=== PATIENT | male | born 1935 | race Caucasian/White ===

== ENCOUNTER 2018-08-12 06:03 | Inpatient (IN) ==
--- NOTE | 2018-08-05 13:01 | PAT Medication Instructions ---
Medication Instructions Date of Service August 05, 2018 Home Medications aspirin 81 mg PO QAM atenolol 25 mg PO QAM lisinopril 10 mg PO QAM DO NOT take the morning of surgery lisinopril 10 mg PO QAM Take morning of surgery With a small sip of water, OTHERWISE NOTHING TO EAT OR DRINK AFTER MIDNIGHT: aspirin 81 mg PO QAM atenolol 25 mg PO QAM Other Notes If you have any questions please call us at [phone] or [phone] or [phone] or [phone]
--- NOTE | 2018-08-05 13:58 | Anesthesiology Consultation ---
Date of Service August 05, 2018 Assessment & Plan (1) Encounter for pre-operative examination: Cardio clearance ([place]) 08/08: "Elderly male with history of hypertension and moderately severe aortic stenosis. He is asymptomatic. He was able to walk 0.5 miles without any problems prior to his fall. ...Echocardiogram done today. I reviewed and interpreted his echocardiogram. His LV systolic function is normal. There is no significant change in his aortic valve stenosis. No contraindication for proposed multilevel lumbar spine surgery. His cardiac risk is acceptable. His medical therapy is optimized. His current cardiac medication should be continued perioperatively." Chart Review Chart Review: Acceptable Risk for Surgery and Patient seen in Pre Admission Testing Consults Requested cardiac History Surgery Operation Date: 08/12/18 13:00 Proposed Procedures p L4-S1 Decompression and Fusion - Gordon Liz DO Height/Weight Height: 5 ft 9 in Weight: 56.699 kg Allergies Allergy/AdvReac Type Severity Reaction Status Date / Time gluten AdvReac Mild celiac Verified 08/03/18 13:42 disease Medications Home Medications Medication Instructions Recorded Confirmed Last Taken aspirin 81 mg PO QAM 08/03/18 08/03/18 Unknown atenolol 25 mg PO QAM 08/03/18 08/03/18 Unknown lisinopril 10 mg PO QAM 08/03/18 08/03/18 Unknown Past Medical History Medical History Aortic stenosis Moderate to moderately severe per 02/09/2018 echo. ABHISHEK 0.7 cm, mean gradient 32 mmHg. Cancer SKIN CANCER S/P EXCISION Celiac disease Chronic back pain Emphysema lung Hearing deficit [place] Hypertension Lumbar radicular pain Past Surgical History Surgical History History of colonoscopy Past Anesthesia History No Hx of Anesthesia Complications and No Family Hx of Anesthesia Complications History of PONV No Social History Smoking Status: Never smoker Do You Dip or Chew Tobacco: No Hx Alcohol Use: No Hx Substance Use: No substance use type: does not use Exercise / Class Metabolic Activity II 4-5 Yardwork/Stairs/Walk up hill (Denies CP or SOB with stairs) Review of Systems Pt denies any recent chest pain, shortness of breath, palpitations, cough, fever or URI. Physical Exam Vital Signs BP: 113/67 P: 70bpm SPO2: 99% RA T: 97.8 F R: 12 ENMT Mouth: + dentures and + edentulous Thyromental Distance: > or= 3.5 Finger Breadths (3.5) Mallampati Class: I Neck normal visual inspection; neck extension not limited Respiratory normal respiratory effort Auscultation: lungs clear to auscultation bilaterally Cardiovascular Rate/Rhythm: regular rate and regular rhythm Heart Sounds: + murmur (II/ MAURICIO across precordium) Vessels: + carotid bruit (radiation from murmur) Extremities: no edema Testing Electrocardiogram Date: 08/05/18 Findings: + NSR @ (61) LVH with repolarization abnormality. Cannot r/o septal infarct, age undetermined. *per 07/2017 EKG from [facility], septal infarct cited on or before 12/08/13) Chest X-Ray Date: 08/05/18 1. Hyperinflation 2. No evidence of focal pulmonary consolidation 3. Mild basilar interstitial thickening, a finding of uncertain chronicity Echocardiogram Date: 08/08/18 EF: 60% Examination is adequate to evaluate the referral indication. Primary indication after review was deemed appropriate examination was performed. Moderately severe aortic stenosis is present. Peak/mean gradient across aortic valve is 55/34 mmHg. Calculated ABHISHEK is 0.7 cm. Mild AV regurgitation is present. No LV segmental wall motion abnormality's. The LV wall thickness is mildly increased (concentric). Grade 1 diastolic dysfunction. Right atrial size is normal. Right ventricular cavity size is normal. Right ventricular systolic function is normal. When compared to study of 02/09/2018, there is no significant change in aortic valve area. Stress Test Date: 01/24/15 Type: exercise (EKG only) Adequate cardiovascular stress test. Mildly positive EKG changes for myocardial ischemia. Functional capacity of 6.3 METs. No significant arrhythmias were noted. Normal blood pressure and heart rate response to exercise. Patient denied chest discomfort reporting only shortness of breath at peak exercise. *per cardiology, this was medically managed with the addition of Atenolol 25mg, and no further testing done. Laboratory Results 08/05/18 14:46 08/05/18 14:46 Blood Type A Positive 08/05/18 14:46 Antibody Screen NEGATIVE 08/05/18 14:46 PT 10.5 Seconds (9.0-12.0) 08/05/18 14:46 INR 1.0 (0.9-1.1) 08/05/18 14:46 APTT 25.3 Seconds (21.0-31.0) 08/05/18 14:46 Urine Color Yellow 08/05/18 14:46 Urine Appearance Clear (Clear) 08/05/18 14:46 Urine pH 7.5 (4.5-7.5) 08/05/18 14:46 Ur Specific Johnston 1.014 (1.000-1.030) 08/05/18 14:46 Urine Protein Negative (Negative) 08/05/18 14:46 Urine Glucose (UA) Negative (Negative) 08/05/18 14:46 Urine Ketones Negative (Negative) 08/05/18 14:46 Urine Nitrite Negative (Negative) 08/05/18 14:46 Ur Leukocyte Esterase Negative (Negative) 08/05/18 14:46
--- NOTE | 2018-08-05 15:14 | XRay Report ---
XR chest Pre-admission PA/Lat CLINICAL HISTORY: Preoperative chest COMPARISON STUDY: No previous studies for comparison. FINDINGS: The heart is normal in size. There is aortic tortuosity. The patient appears hyperinflated. There is mild basilar interstitial thickening. There is no lobar consolidation. There is no overt fa ilure. Degenerative changes are present within the spine and shoulders.[ IMPRESSION: 1. Hyperinflation 2. No evidence of focal pulmonary consolidation 3. Mild basilar interstitial thickening, a finding of uncertain chronicity Electronically signed by: Homar Hercules M.D. 08/05/2018 3:12 PM
[2018-08-05 15:47] LABS: Basophils # (auto) 0.03 K/uL (0-0.2); Basophils % (auto) 0.5 %; Eosinophils # (auto) 0.17 K/uL (0-0.5); Hematocrit (blood only) 36.2 % (42-52); Hemoglobin 12.3 g/dL (14.0-18.0); Immature Granulocytes # (auto) 0.01 K/uL (0.00-0.02); Immature Granulocytes % (auto) 0.2 %; Lymphocytes # (auto) 1.13 K/uL (1.2-3.4); Lymphocytes % (auto) 19.8 %; Mean Corpuscular Volume 92.1 fL (80-100); Mean Platelet Volume 8.8 fL (7.4-10.4); Monocytes # (auto) 0.49 K/uL (0.11-0.59); Monocytes % (auto) 8.6 %; Neutrophils # (auto) 3.89 K/uL (1.4-6.5); Neutrophils % (auto) 67.9 %; Platelet Count 324 K/uL (130-400); RDW Coefficient of Variation 14.7 % (11.5-14.5); RDW Standard Deviation 49.5 fL (36.4-46.3); Red Blood Count 3.93 M/uL (4.7-6.1); White Blood Count 5.72 K/uL (4.8-10.8)
[2018-08-05 15:55] LABS: Calcium 9.1 mg/dl (8.5-10.1); Creatinine Clr Calc Pharmacy 61.1 ml/min; Est GFR (African American) 99.2; Est GFR (Non-African American) 85.6; Potassium 3.8 mmol/L (3.5-5.1)
[2018-08-05 15:58] LABS: Appearance Urine Clear (Clear); Bilirubin Urine Negative (Negative); Blood Urine Negative (Negative); Color Urine Yellow; Glucose Urine UA Negative (Negative); Ketones Urine Negative (Negative); Leukocyte Esterase Urine Negative (Negative); Nitrite Urine Negative (Negative); Protein Urine Negative (Negative); Specific Gravity Urine 1.014 (1.000-1.030); Urobilinogen Urine Negative (Negative); pH Urine 7.5 (4.5-7.5)
[2018-08-05 16:04] LABS: Partial Thromboplastin Ratio 0.9; Partial Thromboplastin Time 25.3 Seconds (21.0-31.0); Prothrombin Time 10.5 Seconds (9.0-12.0)
[~2018-08-12 06:03] MED LIST: ACETAMINOPHEN 500 MG TAB PO SCH; CEFAZOLIN 1000MG 1,000 MG/7.5 ML SYR IV SCH; CeleBREX 200 MG CAP PO SCH; GABAPENTIN 300 MG PO SCH; LR 15ML/HR IV SCH
[2018-08-12] MEDS ORDERED: HYDROmorphone INJ 2 MG/ML SYR/VIAL ONE ×2 (06:43→06:44)
[2018-08-12] MEDS ORDERED: MIDAZOLAM HCL 1 MG/ML 2ML VIAL ONE (06:43)
[2018-08-12] MEDS ORDERED: fentaNYL citrate 100 MCG/2 ML VIAL ONE ×5 (06:43→09:02)
[2018-08-12] MEDS ORDERED: LIDOCAINE HCL 2% 2 ML VIAL/AMP(20MG/ML) INFIL ONE (06:45)
[2018-08-12] MEDS ORDERED: ROCURONIUM BROMIDE 10 MG/ML 5 ML VIAL ONE (06:45)
[2018-08-12] MEDS ORDERED: ONDANSETRON INJ 2 MG/ML 2 ML VIAL ONE (06:45)
[2018-08-12] MEDS ORDERED: GLYCOPYRROLATE 0.2 MG/ML VIAL ONE (06:45)
[2018-08-12] MEDS ORDERED: DEXAMETHASONE SOD INJ 4 MG/ML VIAL ONE (06:45)
[2018-08-12] MEDS ORDERED: NEOSTIGMINE METHYLSULFATE 1 MG/ML 10ML VIAL ONE (06:45)
[2018-08-12] MEDS ORDERED: PROPOFOL IV EMULSION 10 MG/ML 20 ML VIAL IV ONE (06:45)
[2018-08-12] MEDS ORDERED: BACITRACIN INJ 50,000 UNIT VIAL ONE (07:10)
[2018-08-12] MEDS ORDERED: BUPIVACAINE/EPINEPHRINE 0.5% MPF 1:200,000 30 ML VIAL ONE (07:10)
[2018-08-12] MEDS ORDERED: ETOMIDATE 2 MG/ML 20 ML VIAL IV ONE (07:29)
--- NOTE | 2018-08-12 07:33 | History & Physical Bridge Note ---
Date of Service August 12, 2018 History & Physical Bridge Note I have examined the patient, reviewed the History & Physical and in the interval since the performance of the History & Physical I have noted the following changes of clinical significance: no changes noted
--- NOTE | 2018-08-12 07:34 | History & Physical Report ---
Date of Service August 12, 2018 Assessment & Plan (1) Spinal stenosis, lumbar region with neurogenic claudication: L4-S1 decompression and fusion Present on Admission?: Yes History of Present Illness Chief Complaint: Back and leg pain Primary Care Provider: Sherman Khan, DO This is a 82-year-old male presents with chronic persistent back and leg pain after failing extensive course of nonoperative care is here for surgical intervention. Allergies Allergy/AdvReac Type Severity Reaction Status Date / Time nifedipine Allergy Verified 08/12/18 06:54 gluten AdvReac Mild celiac Verified 08/12/18 06:21 disease Home Medications Home Medications Medication Instructions Recorded Confirmed Type aspirin 81 mg PO QAM 08/03/18 08/12/18 History atenolol 25 mg PO QAM 08/03/18 08/12/18 History lisinopril 10 mg PO QAM 08/03/18 08/12/18 History Past Med/Surg History Medical History Aortic stenosis Moderate to moderately severe per 02/09/2018 echo. ABHISHEK 0.7 cm, mean gradient 32 mmHg. Cancer SKIN CANCER S/P EXCISION Celiac disease Chronic back pain Emphysema lung Hearing deficit [place] Hypertension Lumbar radicular pain Surgical History History of colonoscopy Social History Preferred Language: Trinidadian Communication Ability: Effective Organic Search Lead Required: No Beliefs That Will Affect Care: None Current Living Situation: Spouse Other Information That Helps Us Care for You: No Feels Safe at Home: Yes Safety Concerns: Feels Safe At This Time Smoking Status: Never smoker Do You Dip or Chew Tobacco: No Second Hand Exposure: No Tobacco Cessation Education Requested by Patient: No Hx Alcohol Use: No Hx Substance Use: No Physical Exam Vital Signs (Past 24 Hours): Last Vital Signs Temp 36.8 C 08/12/18 06:23 Pulse 59 L 08/12/18 06:23 Resp 18 08/12/18 06:23 BP 170/88 H 08/12/18 06:23 Pulse Ox 100 08/12/18 06:23
--- NOTE | 2018-08-12 09:59 | Fluoroscopy Report ---
FL lumbar spine 2-3V CLINICAL HISTORY: L4-S1 DECOMPRESSION AND FUSION COMPARISON STUDY: None FLUOROSCOPY TIME: 21 seconds NUMBER OF FLUOROSCOPIC IMAGES: 3 FINDINGS: Image intensifier support for L4-S1 decompression and fusion IMPRESSION: L4-S1 decompression and fusion The above report was generated using voice recognition software. It may contain grammatical, syntax or spelling errors. Electronically signed by: Álvaro Crespo M.D. 08/12/2018 9:58 AM
--- NOTE | 2018-08-12 09:59 | Operative Report ---
Post Operative Report Pre & Post Diagnosis Operation Date: 08/12/18 07:45 Pre-Op Diagnosis: Lumbar Spinal Stenosis with Neurogenic Claudication Post-Op Diagnosis: Lumbar Spinal Stenosis with Neurogenic Claudication Procedure Operation Date: 08/12/18 07:45 Actual Procedures #1 lumbar decompression medial facetectomy foraminotomy L3-4 L4-5 L5-S1 per #2 posterior spinal fusion L4-5 L5-S1 per #3 placement posterior segmental instrumentation L4-5 L5-S1 per #4 interbody fusion L4-5 L5-S1. #5 placement of titanium 12 x 26 mm cage L4-5 L5-S1 per #6 placement of local autograft in the posterior lateral gutters per #7 placement Feese collagen sponge, mass graft in the posterior gutters and ostial amp and interbody space. Surgeon Gordon Liz, Gamb Cutter Mitesh Harris Estimated Blood Loss 75 Findings Consistent with Post-Op Diagnosis Specimens None Description of Procedure Patient was met with preoperatively case discussed all questions addressed. After informed consent obtained patient was taken to the operative suite underwent intubation and placed in a prone position on the Quintin table on top of the Anthony frame. All bony prominences well-padded eyes inspected to ensure no external pressure placed upon. This point the lumbar spine was prepped and draped in the normal sterile fashion. Sharp dissection with the assistance of Bovie cautery was performed down to and exposing the lamina transverse process of L4-L5 and sacral ala bilaterally. From a caudal to cephalad fashion complete laminectomy of L5 L4 partial laminectomy of L3 was performed including bilateral medial facetectomies and foraminotomies addressing severe spinal stenosis and L4-L5 and S1 levels bilaterally with assistance of fluoroscopy and by way of a transforaminal approach on the left complete discectomy was performed at L5-S1 in place coated to subcortical being bone and a 12 x 26 mm titanium cage filled with osteo-amp bone graft tapped in position. Then proceeded to L4-[address] of a transforaminal approach on the left discectomy performed in plate coated to subcortical bleeding bone and a 12 x 26 mm titanium cage filled with ostium bone graft tapped in position. The rods and then placed compressed locked in final position bilaterally. The transverse process of L4-L5 and sacral ala bur to subcortical bleeding bone. Infuse collagen sponge mass graft local autograft placed in the posterior lateral gutters. 15 round AD drain inserted. The incision was then closed with 1 Vicryl in the fascia 2-0 Vicryl substantially and 4-0 Monocryl for final skin closure. Steri-Strip sterile dressings placed. Patient will continue to PACU stable disc. Please note Mitesh Harris was present of the entire procedure involved the patient positioning complex portions of the surgery and final skin closure. I attest to the content of the Intraoperative Record and any orders documented therein. Any exceptions are noted below.
[2018-08-12] MEDS ORDERED: PHENYLEPHRINE 100MCG/ML 5ML SYR ONE (10:22)
[2018-08-12] MEDS ORDERED: PROMETHAZINE HCL 12.5 MG in SODIUM CHLORIDE 0.9% 50 ML IV PRN ×2 (11:17→12:10)
[2018-08-12] MEDS ORDERED: ONDANSETRON INJ 2 MG/ML 2 ML VIAL IV PRN ×2 (11:17→12:10)
[2018-08-12] MEDS ORDERED: FLUMAZENIL 0.1 MG/1 ML 10 ML VIAL IV PRN (11:17)
[2018-08-12] MEDS ORDERED: ATROPINE SULFATE 0.1 MG/ML 10ML SYR IV PRN (11:17)
[2018-08-12] MEDS ORDERED: ePHEDrine sulfate 50 MG/ML AMP IV PRN (11:17)
[2018-08-12] MEDS ORDERED: NALOXONE HCL 0.4 MG/1 ML VIAL/CARP IV PRN (11:17)
[2018-08-12] MEDS ORDERED: LABETALOL HCL IV 5 MG/ML 20ML IV PRN (11:17)
[2018-08-12] MEDS ORDERED: fentaNYL citrate 100 MCG/2 ML VIAL IV PRN (11:17)
--- NOTE | 2018-08-12 11:52 | Anesthesiology Progress Note ---
Date of Service August 12, 2018 Anesthesia Post Procedure Vital Signs Vital Signs: Temp Pulse Pulse Resp BP BP Pulse Ox 08/12/18 11:25 45 L 0 L 157/70 H 100 08/12/18 11:21 49 L 16 164/69 H 100 08/12/18 11:20 45 L 10 L 100 08/12/18 11:16 47 L 10 L 169/70 H 100 08/12/18 11:15 46 L 11 L 99 08/12/18 11:10 48 L 15 159/74 H 98 08/12/18 11:07 36.4 C L 50 L 16 159/74 H 99 08/12/18 11:05 48 L 8 L 100 08/12/18 11:00 46 L 11 L 174/78 H 100 08/12/18 10:55 47 L 11 L 164/76 H 100 08/12/18 10:50 49 L 16 160/77 H 100 08/12/18 10:45 52 L 17 165/77 H 100 08/12/18 10:40 57 L 10 L 158/86 H 100 08/12/18 10:35 54 L 16 160/74 H 100 08/12/18 10:31 60 17 154/83 H 100 08/12/18 10:30 55 L 16 100 08/12/18 10:25 57 L 16 158/75 H 100 08/12/18 10:20 57 L 12 155/80 H 100 08/12/18 10:18 55 L 18 100 08/12/18 10:17 56 L 17 162/78 H 100 08/12/18 06:23 36.8 C 59 L 18 170/88 H 100 Notes Mental Status: alert / awake / arousable Patient Amnestic to Procedure: Yes Nausea / Vomiting: adequately controlled Pain: adequately controlled Airway Patency, RR, SpO2: stable & adequate BP & HR: stable & adequate Hydration State: stable & adequate Anesthetic Complications: no major complications apparent
[2018-08-12] MEDS ORDERED: HYDROmorphone INJ 0.5 MG/0.5 ML SYR IV PRN (12:10)
[2018-08-12] MEDS ORDERED: BISACODYL 10 MG SUPP PR PRN (12:10)
[2018-08-12] MEDS ORDERED: ACETAMINOPHEN 1,000 MG/100 ML VIAL IV PRN (12:10)
[2018-08-12] MEDS ORDERED: METOCLOPRAMIDE HCL INJ 5 MG/ML 2 ML VIAL IV PRN (12:10)
[2018-08-12] MEDS ORDERED: OXYCODONE HCL IR 5 MG TAB (IMMEDIATE RELEASE) PO PRN (12:10)
[2018-08-12] MEDS ORDERED: SOD PHOSPHATE/SOD BIPHOSPHATE ENEMA 132 ML BTL PR PRN (12:10)
[2018-08-12] MEDS ORDERED: ACETAMINOPHEN 500 MG TAB PO PRN (12:10)
[2018-08-12] MEDS ORDERED: ONDANSETRON 4 MG TAB PO PRN (12:10)
[2018-08-12] MEDS ORDERED: ALUMINUM/MAGNESIUM SUSP 30 ML UDC PO PRN (12:10)
[2018-08-12] MEDS ORDERED: MAGNESIUM HYDROXIDE SUSP 30 ML UDC PO PRN (12:10)
[2018-08-12] MEDS ORDERED: DO NOT ADMINISTER PNEUMOCOCCAL VACCINE PRN (12:10)
[2018-08-12] MEDS ORDERED: DO NOT ADMINISTER FLU VACCINE PRN (12:10)
[2018-08-12] MEDS ORDERED: FAMOTIDINE 20 MG TAB PO PRN (12:10)
--- NOTE | 2018-08-12 13:39 | Consultation ---
Date of Consultation August 12, 2018 Assessment & Plan (1) H/O lumbosacral spine surgery: This is an 82yo M with a PMH of HTN, HLD, aortic stenosis and lumbar stenosis who is POD#0 s/p L4-S1 lumbar decompression fusion by Dr. Liz. -POD#0 s/p L4-S1 lumbar decompression fusion by Dr. Liz -Pt is doing well post-operatively -Per ortho for pain control, wound care, anticoagulation and activities -Monitor H&H (EBL: 75ml, AD drain: 101ml), pre-op hgb of 12.3 -Continue incentive spirometry, PT/OT when appropriate (2) Aortic stenosis, moderate: Follows with Dr. Carranza, [facility] [place] -Repeat echo from a few weeks ago demonstrates unchanged aortic valve narrowing since January 2018. EF is preserved. -Continue to optimize medical therapy with aspirin, beta keo (3) HTN (hypertension): Slightly elevated, in setting of post-op pain -Continue home atenolol, lisinopril (4) HLD (hyperlipidemia): Unsure why patient is not on statin? No allergy listed -Will suggest that patient discuss with PCP PCP: Bill Dispo:Per primary service Patient seen in collaboration with Dr. Perez. Please see addendum. Supervising Physician Co-Signing Physician Notes I have seen and examined the patient with physician operations administrative assistant and agree with the assessment and plan as above and would like to comment that This is a patient of orthopedic service Dr. Liz and patient had the following spinal surgery because of Lumbar Spinal Stenosis with Neurogenic Claudication : Procedure Operation Date: 08/12/18 07:45 Actual Procedures #1 lumbar decompression medial facetectomy foraminotomy L3-4 L4-5 L5-S1 per #2 posterior spinal fusion L4-5 L5-S1 per #3 placement posterior segmental instrumentation L4-5 L5-S1 per #4 interbody fusion L4-5 L5-S1. #5 placement of titanium 12 x 26 mm cage L4-5 L5-S1 per #6 placement of local autograft in the posterior lateral gutters per #7 placement Feese collagen sponge, mass graft in the posterior gutters and ostial amp and interbody space. On exam general:awake and alert Lungs: clear to auscultation bilaterally , no wheezing Heart: systolic murmur consistent with history stenosis, regular rate and rhythm abdomen: soft, nontender, bowel sounds present Extremities: in SCDs Back: with AD drain, patient able to turn over for exam : joyner in place will continue the recommendations as made by physician operations administrative assistant as above. patient appears medically stable at this time while in post-op care and recovery. Medicine service will continue to follow the patient as consulting service while under primary orthopedic service History of Present Illness z Reason for Consultation: post op med mgmt Attending Physician: Gordon Liz, DO History of Present Illness This is an 82yo M with a PMH of HTN, HLD, aortic stenosis and lumbar stenosis who is POD#0 s/p L4-S1 lumbar decompression fusion by Dr. Liz. Patient is feeling well postoperatively. Denies any back pain or numbness/paresthesias in lower extremities. Tolerated lunch well, without any nausea or vomiting. Denies any fever, chills, lightheadedness, headache, chest pain, shortness of breath or abdominal pain. Passing flatus. Follows with Dr. Khan. Underwent cardiac pre-evaluation due to history of moderate aortic stenosis and repeat echo demonstrates unchanged aortic valve narrowing since January 2018 with preserved EF. Was restarted on atenolol 25mg daily. Allergies Allergy/AdvReac Type Severity Reaction Status Date / Time nifedipine Allergy Verified 08/12/18 06:54 gluten AdvReac Mild celiac Verified 08/12/18 06:21 disease Home Medications Home Medications Medication Instructions Recorded Confirmed Type aspirin 81 mg PO QAM 08/03/18 08/12/18 History atenolol 25 mg PO QAM 08/03/18 08/12/18 History lisinopril 10 mg PO QAM 08/03/18 08/12/18 History Patient History Medical History HLD (hyperlipidemia) (Chronic) HTN (hypertension) (Chronic) Aortic stenosis, moderate (Chronic) Spinal stenosis, lumbar region with neurogenic claudication (Chronic) Aortic stenosis Moderate to moderately severe per 02/09/2018 echo. ABHISHEK 0.7 cm, mean gradient 32 mmHg. 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 Physical Exam Physical Exam: General Appearance: WD/WN, no apparent distress, elderly male resting comfortably Head: normocephalic, atraumatic Eyes: normal inspection, PERRL, EOMI ENT: hearing grossly normal, pharynx normal (moist mucous membranes) Neck: supple, no JVD, no adenopathy Respiratory/Chest: lungs clear to auscultation. No wheezes, rales or rhonci. No respiratory distress or accessory muscle use Cardiovascular: regular rate, rhythm, no murmur, normal peripheral pulses Abdomen/GI: normal bowel sounds, soft, non-tender to palpation Extremities/Musculoskelatal: Lumbosacral bandages clean, dry, intact. AD drain visualized. No calf tenderness, normal capillary refill, no pedal edema Neurologic/Psych: alert, normal mood/affect, oriented x 3 Skin: normal color, warm/dry Results & Data Vital Signs (Past 12 Hours) Vital Signs Temp Pulse Pulse Resp BP BP Pulse Ox 08/12/18 12:23 52 L 15 158/79 H 100 08/12/18 12:05 56 L 16 157/79 H 100 08/12/18 11:35 54 L 14 157/74 H 100 08/12/18 11:25 45 L 0 L 157/70 H 100 08/12/18 11:21 49 L 16 164/69 H 100 08/12/18 11:20 45 L 10 L 100 08/12/18 11:16 47 L 10 L 169/70 H 100 08/12/18 11:15 46 L 11 L 99 08/12/18 11:10 48 L 15 159/74 H 98 08/12/18 11:07 36.4 C L 50 L 16 159/74 H 99 08/12/18 11:05 48 L 8 L 100 08/12/18 11:00 46 L 11 L 174/78 H 100 08/12/18 10:55 47 L 11 L 164/76 H 100 08/12/18 10:50 49 L 16 160/77 H 100 08/12/18 10:45 52 L 17 165/77 H 100 08/12/18 10:40 57 L 10 L 158/86 H 08/12/18 10:35 54 L 16 160/74 H 100 08/12/18 10:31 60 17 154/83 H 100 08/12/18 10:30 55 L 16 100 08/12/18 10:25 57 L 16 158/75 H 08/12/18 10:20 57 L 12 155/80 H 08/12/18 10:18 55 L 18 100 08/12/18 10:17 56 L 17 162/78 H 100 08/12/18 06:23 36.8 C 59 L 18 170/88 H 100 Laboratory Results Pertinent pre-op labs (08/05/18): Hgb: 12.3 Cr: 0.76 GFR: 85.6
[2018-08-12] MEDS: CEFAZOLIN 1000MG 1,000 MG/7.5 ML SYR IV SCH ×2 (15:40→23:28)
[2018-08-12] MEDS: DOCUSATE SODIUM/SENNA 50/8.6MG TAB PO SCH (20:11)
[2018-08-12] MEDS: SODIUM CHLORIDE 0.9% 1000ML 1,000 ML IV SCH (20:20)
[2018-08-13] MEDS: SODIUM CHLORIDE 0.9% 1000ML 1,000 ML IV SCH (00:39)
[2018-08-13 07:11] LABS: Basophils # (auto) 0.01 K/uL (0-0.2); Basophils % (auto) 0.1 %; Eosinophils # (auto) 0.04 K/uL (0-0.5); Eosinophils % (auto) 0.5 %; Hemoglobin 9.9 g/dL (14.0-18.0); Immature Granulocytes # (auto) 0.02 K/uL (0.00-0.02); Immature Granulocytes % (auto) 0.2 %; Lymphocytes # (auto) 1.06 K/uL (1.2-3.4); Mean Corpuscular Hgb Conc 34.1 g/dL (32-36); Mean Corpuscular Volume 90.3 fL (80-100); Monocytes # (auto) 1.13 K/uL (0.11-0.59); Monocytes % (auto) 13.8 %; Neutrophils % (auto) 72.4 %; Platelet Count 231 K/uL (130-400); RDW Coefficient of Variation 14.4 % (11.5-14.5); Red Blood Count 3.21 M/uL (4.7-6.1); White Blood Count 8.16 K/uL (4.8-10.8)
[2018-08-13 07:44] LABS: BUN Creatinine Ratio 17.1 (10-20); Calcium 8.7 mg/dl (8.5-10.1); Est GFR (African American) 86.7; Est GFR (Non-African American) 74.8; Potassium 4.2 mmol/L (3.5-5.1)
--- NOTE | 2018-08-13 08:10 | Orthopedic Progress Note ---
Date of Service August 13, 2018 Assessment & Plan (1) Spinal stenosis, lumbar region with neurogenic claudication: Patient is doing well postoperative day #1. We will continue GI DVT prophylaxis as well as pain control. We will mobilize him with physical therapy today and hopefully get his catheter out and get him walking. He will be with us throughout the weekend and possible discharged home on Wednesday. Subjective Patient is postoperative day 1 status post lumbar decompression fusion from L4 to sacrum. He is doing quite well this morning. He has minimal pain to some soreness in the back that he feels is from lying on his back and not moving. He is not having any pain going down his legs the numbness and pain that he had prior surgery have dissipated. He has no complaints at this point. Physical Exam Physical Exam: On exam he is alert and oriented. His abdomen soft nontender his calves are supple nontender. He has full strength in both lower extremities . His dressings clean dry and intact his AD drains in place and total his placed out just under 450 cc since his surgery. Results & Data Vital Signs (Past 12 Hours) Vital Signs Temp Pulse Resp BP Pulse Ox 08/13/18 07:21 36.9 C 66 15 133/70 98 08/13/18 03:10 36.6 C 68 14 145/72 H 100 08/12/18 23:29 36.6 C 68 14 133/66 99
[2018-08-13] MEDS: ATENOLOL 25 MG TABLET PO SCH (08:53)
[2018-08-13] MEDS: ASPIRIN 81 MG ECTAB PO SCH (08:54)
[2018-08-13] MEDS: LISINOPRIL 10 MG TAB PO SCH (08:54)
--- NOTE | 2018-08-13 10:11 | Anesthesiology Progress Note ---
Date of Service August 13, 2018 Anesthesia Post Procedure Vital Signs Vital Signs: Temp Pulse Pulse Resp BP BP Pulse Ox 08/13/18 07:21 36.9 C 66 15 133/70 98 08/13/18 03:10 36.6 C 68 14 145/72 H 100 08/12/18 23:29 36.6 C 68 14 133/66 99 08/12/18 15:12 36.4 C L 67 18 120/67 98 08/12/18 14:35 36.5 C 55 L 16 122/70 99 08/12/18 13:48 36.3 C L 56 L 14 172/78 H 100 08/12/18 12:23 52 L 15 158/79 H 100 08/12/18 12:05 56 L 16 157/79 H 100 08/12/18 11:35 54 L 14 157/74 H 100 08/12/18 11:25 45 L 0 L 157/70 H 100 08/12/18 11:21 49 L 16 164/69 H 100 08/12/18 11:20 45 L 10 L 100 08/12/18 11:16 47 L 10 L 169/70 H 100 08/12/18 11:15 46 L 11 L 99 08/12/18 11:10 48 L 15 159/74 H 98 08/12/18 11:07 36.4 C L 50 L 16 159/74 H 99 08/12/18 11:05 48 L 8 L 100 08/12/18 11:00 46 L 11 L 174/78 H 100 08/12/18 10:55 47 L 11 L 164/76 H 100 08/12/18 10:50 49 L 16 160/77 H 100 08/12/18 10:45 52 L 17 165/77 H 100 08/12/18 10:40 57 L 10 L 158/86 H 100 08/12/18 10:35 54 L 16 160/74 H 100 08/12/18 10:31 60 17 154/83 H 100 08/12/18 10:30 55 L 16 100 08/12/18 10:25 57 L 16 158/75 H 100 08/12/18 10:20 57 L 12 155/80 H 100 08/12/18 10:18 55 L 18 100 08/12/18 10:17 56 L 17 162/78 H 100 Notes Mental Status: alert / awake / arousable and participated in evaluation Nausea / Vomiting: adequately controlled Pain: adequately controlled Airway Patency, RR, SpO2: stable & adequate BP & HR: stable & adequate Hydration State: stable & adequate
--- NOTE | 2018-08-13 13:52 | Hospitalist Progress Note ---
Date of Service August 13, 2018 Assessment & Plan (1) H/O lumbosacral spine surgery: This is an 82yo M with a PMH of HTN, HLD, aortic stenosis and lumbar stenosis who is s/p L4-S1 lumbar decompression fusion by Dr. Liz on 08/12/18 This is a patient of orthopedic service Dr. Liz and patient had the following spinal surgery because of Lumbar Spinal Stenosis with Neurogenic Claudication : (Operation Date: 08/12/18 07:45 #1 lumbar decompression medial facetectomy foraminotomy L3-4 L4-5 L5-S1 per #2 posterior spinal fusion L4-5 L5-S1 per #3 placement posterior segmental instrumentation L4-5 L5-S1 per #4 interbody fusion L4-5 L5-S1. #5 placement of titanium 12 x 26 mm cage L4-5 L5-S1 per #6 placement of local autograft in the posterior lateral gutters per #7 placement Feese collagen sponge, mass graft in the posterior gutters and ostial amp and interbody space.) -AD drain management per orthopedics -continue prn pain medication of oxycodone -give senna and colace while on narcotic pain medication to prevent constipation anemia secondary to blood loss pre-op hgb of 12.3 with estimated blood loss of 75 ml and presence of AD drain with seroanguinous fluid Hgb on 08/13/18 is 9.9 and blood pressure is stable, no medical need for blood transfusion at this time, continue to monitor Hgb (2) Aortic stenosis, moderate: Follows with Dr. Carranza, [facility] [place] cardiology -Repeat echo from a few weeks ago demonstrates unchanged aortic valve narrowing since January 2018. EF is preserved. -Continue to optimize medical therapy with aspirin, beta keo (3) HTN (hypertension): blood pressure controlled -Continue home atenolol, lisinopril (4) HLD (hyperlipidemia): outpatient management of cholesterol and lipids as needed will send lipid profile PCP: Bill Subjective patient with assistance from nursing staff able to stand up with rolling walker and ambulate from the bed to chair. denies acute back pain. no chest pain. no shortness of breath. no vomiting. no abdomen pain. Physical Exam Constitutional: WD/WN, vitals as above Eyes: PERRL, conjunctivae normal, anicteric sclerae EOM intact bilaterally ENMT: external ear and nose normal, oropharynx normal Respiratory: normal respiratory effort, lungs clear to auscultation Cardiovascular: Rate/Rhythm: regular rhythm and + bradycardic Heart Sounds: + murmur Gastrointestinal (Abdomen): normal bowel sounds, soft, nontender, no hepatospl enomegaly Musculoskeletal: Head/Neck/Chest: normocephalic and head atraumatic Neurologic: PERRL, EOMI, accommodation nl, no face palsy, no dysarthria CN's II-XI intact bilaterally Psychiatric: A+Ox3, euthymic affect Results & Data Vital Signs (Past 12 Hours) Vital Signs Temp Pulse Pulse Resp BP Pulse Ox 08/13/18 12:35 37.2 C 66 19 122/71 99 08/13/18 07:21 36.9 C 66 15 133/70 98 08/13/18 03:10 36.6 C 68 14 145/72 H 100
[2018-08-13] MEDS: TRAMADOL HCL 50 MG TABLET PO PRN (14:04)
[2018-08-13] MEDS: SENNA 8.6 MG TAB PO SCH (15:02)
[2018-08-13] MEDS: DOCUSATE SODIUM 100 MG CAP PO SCH (21:01)
[2018-08-13] MEDS: DOCUSATE SODIUM/SENNA 50/8.6MG TAB PO SCH (21:01)
[2018-08-14] MEDS: TRAMADOL HCL 50 MG TABLET PO PRN (05:09)
[2018-08-14 06:14] LABS: Chol HDL Ratio 3; Cholesterol 130 mg/dl (0-200); HDL Cholesterol 43 mg/dl; LDL Cholesterol Calculated 74 mg/dl; Triglycerides 66 mg/dl (0-150); VLDL Cholesterol 13 mg/dl
[2018-08-14] MEDS: DOCUSATE SODIUM 100 MG CAP PO SCH ×2 (07:38→21:38)
[2018-08-14] MEDS: ATENOLOL 25 MG TABLET PO SCH (07:39)
[2018-08-14] MEDS: ASPIRIN 81 MG ECTAB PO SCH (07:39)
[2018-08-14] MEDS: SENNA 8.6 MG TAB PO SCH (07:39)
[2018-08-14] MEDS: LISINOPRIL 10 MG TAB PO SCH (07:40)
--- NOTE | 2018-08-14 10:29 | Orthopedic Progress Note ---
Date of Service August 14, 2018 Assessment & Plan (1) Spinal stenosis, lumbar region with neurogenic claudication: Patient is doing well postoperative day #2. We will continue with physical therapy GI DVT prophylaxis. He still has a fair amount of drainage being placed we will keep him today and likely get him home tomorrow. Subjective Patient was seen bedside today in room 318. He is postoperative day #2 status post lumbar decompression fusion from L4 to the sacrum. Overall he feels he is doing quite well. He has no problems with his legs has been up and walking on his own and doing well with this. He had a sleepless night and is a little groggy this morning. Other than that he has no complaints. Physical Exam Physical Exam: On exam he is alert and oriented. His abdomen soft nontender calves are supple nontender. Strength is 5 out of 5 detailed muscle testing without exception. His dressings clean dry and intact. His AD drain is intact and is placed 40 cc out the shift and 65 cc in the last. Results & Data Vital Signs (Past 12 Hours) Vital Signs Temp Pulse Pulse Pulse Resp BP Pulse Ox 08/14/18 07:34 82 129/73 08/14/18 06:08 37.1 C 72 16 116/63 96 08/13/18 23:59 37.5 C 77 14 136/73 97
[2018-08-14] MEDS ORDERED: TAMSULOSIN HCL 0.4 MG CAP PO ONE (12:57)
--- NOTE | 2018-08-14 13:24 | Hospitalist Progress Note ---
Date of Service August 14, 2018 Assessment & Plan (1) H/O lumbosacral spine surgery: This is an 82yo M with a PMH of HTN, HLD, aortic stenosis and lumbar stenosis who is s/p L4-S1 lumbar decompression fusion by Dr. Liz on 08/12/18 This is a patient of orthopedic service Dr. Liz and patient had the following spinal surgery because of Lumbar Spinal Stenosis with Neurogenic Claudication : (Operation Date: 08/12/18 07:45 #1 lumbar decompression medial facetectomy foraminotomy L3-4 L4-5 L5-S1 per #2 posterior spinal fusion L4-5 L5-S1 per #3 placement posterior segmental instrumentation L4-5 L5-S1 per #4 interbody fusion L4-5 L5-S1. #5 placement of titanium 12 x 26 mm cage L4-5 L5-S1 per #6 placement of local autograft in the posterior lateral gutters per #7 placement Feese collagen sponge, mass graft in the posterior gutters and ostial amp and interbody space.) -AD drain management per orthopedics -on prn pain medication -give senna and colace while on narcotic pain medication to prevent constipation anemia secondary to blood loss pre-op hgb of 12.3 with estimated blood loss of 75 ml and presence of AD drain with seroanguinous fluid Hgb on 08/13/18 is 9.9 and blood pressure is stable, no medical need for blood transfusion at this time Possible urinary retention -patient has had 2 straight caths for urine as per nursing staff -give tamsulosin -minimize excessive sedative narcotics -send urine analysis with the next urine sample (2) Aortic stenosis, moderate: Follows with Dr. Carranza, [facility] [place] -Repeat echo from a few weeks ago demonstrates unchanged aortic valve narrowing since January 2018. EF is preserved. -Continue medical therapy with aspirin, atenolol (3) HTN (hypertension): blood pressure controlled -Continue home atenolol, lisinopril Lipid profile reviewed and no need for statins at this time as lipid profile within normal limits DVT prophylaxis: SCDs PCP: Bill Subjective Patient seen and examined while sitting up in the chair eating lunch. patient denies acute pain. as per nurse patient appears to be having some urinary retention and needed straight catheterizations. Patient reports he can urinate when is stands but he is often tired and laying down. denies abdomen pain. denies chest pain. no shortness of breath. AD drain remains attached to surgical site from the back. patient denies back pain Physical Exam Constitutional: WD/WN, vitals as above Eyes: PERRL, conjunctivae normal, anicteric sclerae EOM intact bilaterally ENMT: external ear and nose normal, oropharynx normal Respiratory: normal respiratory effort, lungs clear to auscultation Cardiovascular: Rate/Rhythm: regular rhythm and + bradycardic Heart Sounds: + murmur Gastrointestinal (Abdomen): normal bowel sounds, soft, nontender, no hepatosplenomegaly Musculoskeletal: Head/Neck/Chest: normocephalic and head atraumatic AD drain to the back Neurologic: PERRL, EOMI, accommodation nl, no face palsy, no dysarthria CN's II-XI intact bilaterally Psychiatric: A+Ox3, euthymic affect Results & Data Vital Signs (Past 12 Hours) Vital Signs Temp Pulse Pulse Resp BP Pulse Ox 08/14/18 07:34 82 129/73 08/14/18 06:08 37.1 C 72 16 116/63 96
[2018-08-14 14:34] LABS: Appearance Urine Clear (Clear); Bacteria Urine Automated Negative (Negative); Bilirubin Urine Negative (Negative); Blood Urine 1+ (Negative); Cast Urine Automated 0 /lpf (0-5); Color Urine Yellow; Glucose Urine UA Negative (Negative); Ketones Urine Trace (Negative); Leukocyte Esterase Urine Negative (Negative); Nitrite Urine Negative (Negative); Protein Urine Negative (Negative); Specific Gravity Urine 1.014 (1.000-1.030); Urobilinogen Urine Negative (Negative); pH Urine 6.5 (4.5-7.5)
[2018-08-14] MEDS: DOCUSATE SODIUM/SENNA 50/8.6MG TAB PO SCH (21:38)
[2018-08-14] MEDS ORDERED: LIDOCAINE 2% JELLY 5 ML TUBE EXT ONE (21:52)
[2018-08-15] MEDS: TRAMADOL HCL 50 MG TABLET PO PRN (05:16)
[2018-08-15 08:36] VITALS: O2SAT 98
[2018-08-15] MEDS: ATENOLOL 25 MG TABLET PO SCH (08:40)
[2018-08-15] MEDS: DOCUSATE SODIUM 100 MG CAP PO SCH (08:41)
[2018-08-15] MEDS: ASPIRIN 81 MG ECTAB PO SCH (08:41)
[2018-08-15] MEDS: LISINOPRIL 10 MG TAB PO SCH (08:41)
[2018-08-15] MEDS ORDERED: TAMSULOSIN HCL 0.4 MG CAP PO SCH (09:00)
[2018-08-15] MEDS: SENNA 8.6 MG TAB PO SCH (09:45)
--- NOTE | 2018-08-15 11:20 | Hospitalist Progress Note ---
Date of Service August 15, 2018 Assessment & Plan (1) H/O lumbosacral spine surgery: This is an 82yo M with a PMH of HTN, HLD, aortic stenosis and lumbar stenosis who is s/p L4-S1 lumbar decompression fusion by Dr. Liz on 08/12/18 This is a patient of orthopedic service Dr. Liz and patient had the following spinal surgery because of Lumbar Spinal Stenosis with Neurogenic Claudication : (Operation Date: 08/12/18 07:45 #1 lumbar decompression medial facetectomy foraminotomy L3-4 L4-5 L5-S1 per #2 posterior spinal fusion L4-5 L5-S1 per #3 placement posterior segmental instrumentation L4-5 L5-S1 per #4 interbody fusion L4-5 L5-S1. #5 placement of titanium 12 x 26 mm cage L4-5 L5-S1 per #6 placement of local autograft in the posterior lateral gutters per #7 placement Feese collagen sponge, mass graft in the posterior gutters and ostial amp and interbody space.) -AD drain management per orthopedics -on prn pain medication -give senna and colace while on narcotic pain medication to prevent constipation anemia secondary to blood loss ( Expected acute blood-loss anemia) pre-op hgb of 12.3 with estimated blood loss of 75 ml and presence of AD drain with seroanguinous fluid, Hgb on 08/13/18 is 9.9 and blood pressure is stable, no medical need for blood transfusion at this time will order CBC for 08/15/18 Urinary retention -over the weekend patient had urinary retention with multiple straight caths -urine analysis 08/14/18 with no bacteria, joyner was placed -continue tamsulosin -minimize excessive sedative narcotics -a consult for urology is active -will order basic metabolic panel (2) Aortic stenosis, moderate: Follows with Dr. Carranza, [place] cardiology -Repeat echo from a few weeks ago demonstrates unchanged aortic valve narrowing since January 2018. EF is preserved. -Continue medical therapy with aspirin, atenolol Cachexia with BMI of 18 -give Boost with meals while in the hospital -horizontal drill operator consult placed (3) HTN (hypertension): blood pressure controlled -Continue home atenolol, lisinopril Lipid profile reviewed and no need for statins at this time as lipid profile within normal limits DVT prophylaxis: SCDs PCP: Braum Subjective patient had urinary retention and needed joyner to be placed overnight. Patient denies bladder pain. no abdomen pain. no vomiting. no chest pain. no shortness of breath. continues to have AD drain to the back Physical Exam Constitutional: no distress Eyes: PERRL, conjunctivae normal, anicteric sclerae EOM intact bilaterally ENMT: external ear and nose normal, oropharynx normal Respiratory: normal respiratory effort, lungs clear to auscultation Cardiovascular: Rate/Rhythm: regular rhythm and + bradycardic Heart Sounds: + murmur Gastrointestinal (Abdomen): normal bowel sounds, soft, nontender, no hepatosplenomegaly Musculoskeletal: Head/Neck/Chest: normocephalic and head atraumatic AD drain to back Neurologic: PERRL, EOMI, accommodation nl, no face palsy, no dysarthria CN's II-XI intact bilaterally Psychiatric: A+Ox3, euthymic affect Genitourinary: joyner in place Results & Data Vital Signs (Past 12 Hours) Vital Signs Temp Pulse Pulse Resp BP Pulse Ox 08/15/18 08:15 36.7 C 75 20 100/70 98 08/14/18 23:59 37.2 C 78 16 115/68 99
[2018-08-15 11:42] LABS: Basophils # (auto) 0.02 K/uL (0-0.2); Basophils % (auto) 0.3 %; Eosinophils # (auto) 0.02 K/uL (0-0.5); Eosinophils % (auto) 0.3 %; Hemoglobin 9.3 g/dL (14.0-18.0); Immature Granulocytes # (auto) 0.01 K/uL (0.00-0.02); Immature Granulocytes % (auto) 0.1 %; Lymphocytes # (auto) 0.69 K/uL (1.2-3.4); Mean Corpuscular Volume 90.9 fL (80-100); Mean Platelet Volume 8.7 fL (7.4-10.4); Monocytes # (auto) 0.65 K/uL (0.11-0.59); Monocytes % (auto) 9.4 %; Neutrophils # (auto) 5.54 K/uL (1.4-6.5); Neutrophils % (auto) 79.9 %; Platelet Count 192 K/uL (130-400); RDW Coefficient of Variation 14.3 % (11.5-14.5); RDW Standard Deviation 47.3 fL (36.4-46.3); Red Blood Count 2.97 M/uL (4.7-6.1); White Blood Count 6.93 K/uL (4.8-10.8)
[2018-08-15 11:43] LABS: Mean Corpuscular Hgb Conc 34.4 g/dL (32-36)
[2018-08-15 11:59] LABS: BUN Creatinine Ratio 21.3 (10-20); Calcium 8.7 mg/dl (8.5-10.1); Creatinine Clr Calc Pharmacy 66.1 ml/min; Est GFR (African American) 103.2; Potassium 3.7 mmol/L (3.5-5.1)
[2018-08-15 12:53] VITALS: BP 114/74; TEMP 98.8
--- NOTE | 2018-08-15 15:05 | Discharge Summary ---
Date of Service August 15, 2018 Admission HPI Per Admitting Provider This is a 82-year-old male presents with chronic persistent back and leg pain after failing extensive course of nonoperative care is here for surgical intervention. 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 Postop day 1 his leg symptoms are improved he was up in a bleeding nicely. Grossly postop day #2. AD drain decreasing appropriately. Subsequently discharged home on postop day #3. Discharge orders and instructions can be found the chart for further review. Total Time Total Time Spent Total Time Spent (In Minutes): Not applicable Discharge Plan Discharge Items Patient Disposition: Home - Self-Care Reason For Visit: LUMBAR SPINAL STENOSIS W/NEUROGENIC CLAUDICATION Discharge Diagnosis: lumbar stenosis Discharge Goals: Improve function Activity: Per 'Additional Instructions' section Non-emergency contact: Primary Care Provider Call non-emergency contact if: you have any medication questions Follow-up/Referrals: Sherman Khan DO [Primary Care Provider] - Diet: Regular Addtl Provider Instructions: ACTIVITY RECOMMENDATIONS: SELF CARE INSTRUCTIONS AFTER THORACIC/LUMBAR FUSIONS 1. You may walk to your tolerance. It is good exercise for your legs and back. Expect some back and intermittent leg aches and pains. 2. You may perform "counter-top" level activities (make a sandwich, connie with a project, etc.). 3. No bending or lifting of more than 10 pounds or back twisting of any nature (roll like a log when turning in bed). 4. You may ride in a car for 20-30 minutes at a time. No driving until after your first visit with your doctor. 5. Frequent changes of position and restricting sitting to 30 minutes at a time will help limit the amount of back spasms and stiffness you may experience. 6. You may discontinue the use of ambulatory aids (cane, crutches, etc.) once your strength and confidence allow. 7. You may newsstand vendor the shower and let water strike your incision when you arrive home at least once daily. Do not take a tub bath, sit in a hot tub or go into a swimming pool until after your first recheck in the office. SPECIAL CARE INSTRUCTIONS: VERY IMPORTANT TO READ AND REVIEW A. Your surgical incision has been closed with a cosmetic suture under the skin that will dissolve in about 6 weeks. In 14 days, you can use a pair of clean scissors and cut the suture that is left outside of the skin at the ends of your incision. 1. The small skin tapes can be removed 7 days after surgery if they have not fallen off by that point. 2. You may keep the wound open to air as much as possible to promote healing after post-op day number 5 unless told otherwise by your doctor. 3. If you think the wound looks like it is becoming infected (redness or worsening drainage) and/or you are experiencing fever, chill or worsening back pain and muscle spasms, contact the office so that we may evaluate you as soon as possible. B. Complications are uncommon, but please contact us if you have any signs or symptoms of: 1. wound infection (fever higher than 102.5 degrees F, redness, separation of wound, drainage, or increasing pain from the incision) 2. blood clots in legs (pain, swelling, redness and warmth in legs) 3. urinary tract infection (fever higher than 102.5 degrees F, burning upon urination or increased frequency of urination) 4. nerve problems (inability to walk on your toes or heels, numbness, loss of bowel or bladder control) 5. any other symptoms that concern you C. Please call the office at if you have any concerns or questions about your operation or recovery. D. No smoking! Smoking drastically decreases the chance of a solid fusion. E. Do not take any anti-inflammatory medications (Indocin, Advil, Motrin, Aspirin, Naprosyn, etc.) as these may inhibit the chance of a solid fusion. Tylenol is okay to take for pain. MANAGING PAIN AFTER SPINAL SURGERY 1. Narcotic medication is intended for short-term use and will be provided for surgical pain. Surgical pain usually lasts for a period of 4-6 weeks. Narcotic medication includes Percocet, Vicodin, Darvocet, Tylenol #3 or Lortab. 2. Longer-term pain is more appropriately treated with non-narcotic medication such as Tylenol ES. 3. Muscle spasm is not appropriately treated with narcotics. Muscle relaxers such as Soma, Flexeril or Skelaxin can be used along with Tylenol ES. 4. Remember that we all live with some "aches and pains". This is not unusual or uncommon after an injury or as we get older. a. Back pain is expected and may include muscle spasms for 4 to 6 weeks after surgery. The pain should gradually improve. If the pain worsens for no apparent reason, please contact the office. b. Intermittent leg pain may also be experienced and should not be concerned about unless it worsens for no apparent reason. If so, please contact the office. 5. We will provide appropriate medication within the normal guidelines of their prescribed use. We will also be very cautious and aware of potential abuse and extended duration of patients' medication needs. a. Pain medications are for your comfort and to assist with sleep and rest so that the tissue can heal. They are not provided in order to return to normal activity and should not be used through the day. To do so or worsening pain at night can result from ongoing tissue damage and development of tolerance to the prescribed medicine. 6. Please allow 2-3 days to process refills. Prescriptions will not be mailed but must be picked up at the office. FOLLOW UP VISIT: Keep your scheduled follow-up appointment. Any questions, please call the office at . Prescriptions: New tramadol 50 mg Tablet 50 mg PO Q4H PRN (Reason: Pain) Qty: 30 RF: 0 Continued atenolol 25 mg Tablet 25 mg PO QAM RF: 0 lisinopril 10 mg Tablet 10 mg PO QAM RF: 0 aspirin 81 mg Tablet,Chewable 81 mg PO QAM RF: 0 Stand-Alone Forms: [facility] Discharge Orders: Discharge Order (Routine); Ordered 08/15/18 Ordered By: Gordon Liz Admission Data Admit Date/Time: 08/12/18 11:47 Attending Provider: Gordon Liz Admit Provider: Gordon Liz Primary Care Provider: Sherman Khan V. Other Providers: Jamaal Perez ; Adelfo Clemons I. Service: Surgical Services
[2018-08-15 15:07] VITALS: PULSE 78
== END 2018-08-15 16:16 | disposition home or self-care (01) | DRG 454 ==
LOC: ASU 06:03 → 3E 11:47